=== PATIENT | female | born 1945 | race African-American/Black ===

== ENCOUNTER → 2016-11-28 | Outpatient (CLI) | payer OTHER ==
[~2016-11-28] MED LIST: AMARYL4 MG PO; AMITRIPTYLINE H10 M1 PO; AMITRIPTYLINE H25 M3 PO; ASPIRIN EC81 M1 PO; BACLOFEN 10MG T10 MG PO; COZAAR 50 MG TA50 MG PO; D-20002000 UNIT PO; FLEXERIL PO; GABAPENTIN 100100 MG PO; HYDROCHLOROTHIA25 M1 PO; IBUPROFEN 800800 M1 PO; LASIX 40 MG TAB40 M2 PO; LIDODERM 5%1 PATC1 TRANSDERM; LIPITOR20 MG PO; LISINOPRIL40 MG PO; METOPROLOL SUCC50 MG PO; NAPROSYN500 MG PO; NEXIUM40 MG PO; NITROGLYCERIN0.4 MG SUBLING; NORCO 5-325 TA1 EACH PO; OMEPRAZOLE20 MG PO; OXYCONTIN10 M1 PO; PERCOCET 10-321 EACH PO; PERCOCET PO; POTASSIUM20 PO; PREDNISONE 20 M20 MG PO; PROPYLTHIOURACIL PO; TOPROL XL25 MG PO
== END ==
LOC: CAT 06:54
DX: M47.26 Other spondylosis with radiculopathy, lumbar region (principal); M48.06 Spinal stenosis, lumbar region; M54.5 Low back pain

== ENCOUNTER → 2017-01-22 | Outpatient (CLI) | payer OTHER | LOC: HYPER 07:04 | DX: T81.89XD Other complications of procedures, not elsewhere classified, subsequent encounter (principal); E11.69 Type 2 diabetes mellitus with other specified complication; I10 Essential (primary) hypertension; I25.10 Atherosclerotic heart disease of native coronary artery without angina pectoris; J44.9 Chronic obstructive pulmonary disease, unspecified; Z95.0 Presence of cardiac pacemaker; Y83.8 Other surgical procedures as the cause of abnormal reaction of the patient, or of later complication, without mention of misadventure at the time of the procedure ==

== ENCOUNTER → 2017-02-10 | Outpatient (CLI) | payer OTHER | LOC: HYPER 07:03 | DX: T81.89XD Other complications of procedures, not elsewhere classified, subsequent encounter (principal); I10 Essential (primary) hypertension; I25.10 Atherosclerotic heart disease of native coronary artery without angina pectoris; J44.9 Chronic obstructive pulmonary disease, unspecified; Z95.0 Presence of cardiac pacemaker; Y83.8 Other surgical procedures as the cause of abnormal reaction of the patient, or of later complication, without mention of misadventure at the time of the procedure; E11.9 Type 2 diabetes mellitus without complications ==

== ENCOUNTER → 2017-03-10 | Outpatient (CLI) | payer OTHER | LOC: HYPER 07:12 | DX: T81.4XXD Infection following a procedure, subsequent encounter (principal); E11.69 Type 2 diabetes mellitus with other specified complication; I10 Essential (primary) hypertension; E43 Unspecified severe protein-calorie malnutrition; I25.10 Atherosclerotic heart disease of native coronary artery without angina pectoris; J44.9 Chronic obstructive pulmonary disease, unspecified; Z95.0 Presence of cardiac pacemaker; Y83.8 Other surgical procedures as the cause of abnormal reaction of the patient, or of later complication, without mention of misadventure at the time of the procedure ==

== ENCOUNTER 2017-03-26 13:16 | Emergency (ER) | payer OTHER ==
[~2017-03-26] VITALS: Ht 167.6 cm; Wt 71.7 kg
[2017-03-26] MEDS ORDERED: CLARITIN10 MG PO (14:04)
[2017-03-26] MEDS ORDERED: FLONASE 0.05%50 MCG NASAL (14:04)
== END 2017-03-26 14:14 | disposition home or self-care (01) ==
LOC: ER 13:16
DX: J30.9 Allergic rhinitis, unspecified (principal); I10 Essential (primary) hypertension; E11.9 Type 2 diabetes mellitus without complications; E78.00 Pure hypercholesterolemia, unspecified; G89.29 Other chronic pain; M41.86 Other forms of scoliosis, lumbar region; Z95.0 Presence of cardiac pacemaker

== ENCOUNTER 2017-12-01 13:11 | Emergency (ER) | payer OTHER ==
[~2017-12-01] VITALS: Ht 167.6 cm; Wt 69.8 kg
--- NOTE | ~2017-12-01 | EKG ---
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[facility] : 1945 Requested By: Mesha Peña Order Number: [id number] MD: Massimo Connell Measurements Intervals [place] Rate: 66 P: 16 WA: 174 QRS: -55 QRSD: 150 T: 117 QT: 449 QTc: 471 Interpretive Statements Atrial-sensed ventricular-paced rhythm No further analysis attempted due to paced rhythm Compared to ECG 05/03/2017 07:44:52 No significant changes Electronically Signed On 12-02-2017 15:45:36 FROG [employer]AKER by Massimo Cnonell [email or web address] <ELECTRONICALLY SIGNED> By: Massimo Connell MD, [facility] 12/02/17 1545 1320 1320 Massimo Connell MD, FACC /EPI
[~2017-12-01 13:11] MED LIST changes: +CLARITIN10 MG PO; +COREG6.25 MG PO; +FLONASE 0.05%50 MCG NASAL; +MULTIVITAMINS1 EAC7 PO; +REFRESH LIQUIGE15 ML OP; +VITAMINC500 PO; +ZANTAC 150MG T150 MG PO
[2017-12-01 14:09] LABS: ABSOLUTE NEUTROPHILS 4.4 thou/uL (1.4-8.2); BASOPHILS 1.2 % (0.0-2.0); EOSINOPHILS 3.7 % (0.0-3.0); HEMATOCRIT 37.3 % (37.0-47.0); HEMOGLOBIN 12.4 gm/dL (12.0-15.0); LYMPHOCYTES 23.6 % (24.0-44.0); MCHC 33.2 g/dL (28.0-37.0); MCV 87.6 fL (80.0-100.0); MONOCYTES 11.3 % (1.0-8.0); PLATELET COUNT 385 thou/uL (150-400); POLYS 60.2 % (36.0-66.0); RBC 4.25 mil/uL (4.20-5.00); RDW 15.3 % (10.5-14.5); WBC 7.4 thou/uL (4.0-11.0)
[2017-12-01 14:18] LABS: ANION GAP 6 mmol/L (7-16); BUN 17 mg/dL (7-18); CALCIUM 9.1 mg/dL (8.5-10.1); CHLORIDE 108 mmol/L (98-107); CO2 28 mmol/L (21-32); CREATININE 0.8 mg/dL (0.6-1.0); GLUCOSE 143 mg/dL (74-106); POTASSIUM 3.6 mmol/L (3.5-5.1); SODIUM 142 mmol/L (136-145)
[2017-12-01 14:26] LABS: ALBUMIN 3.4 g/dL (3.4-5.0); SGOT 13 U/L (15-37); SGPT 19 U/L (30-65); TOTAL BILIRUBIN 0.4 mg/dL (<0.1-1.0); TROPONIN-I < 0.04 ng/mL (<0.06)
[2017-12-01 16:04] VITALS: BP 161/73
== END 2017-12-01 16:05 | disposition home or self-care (01) ==
LOC: ER 13:11
PROVIDERS: Physician Assistant
DX: F41.9 Anxiety disorder, unspecified (principal); I10 Essential (primary) hypertension; E11.9 Type 2 diabetes mellitus without complications; E78.00 Pure hypercholesterolemia, unspecified; G89.29 Other chronic pain; M54.5 Low back pain; E07.9 Disorder of thyroid, unspecified

== ENCOUNTER 2018-03-04 13:49 | Emergency (ER) | payer OTHER ==
[~2018-03-04] VITALS: Ht 167.6 cm; Wt 73.9 kg
--- NOTE | ~2018-03-04 | EKG ---
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 03/05/18 0831 1204 1204 Massimo Connell MD, [facility] /EPI
[2018-03-04 14:25] LABS: ABSOLUTE NEUTROPHILS 5.2 thou/uL (1.4-8.2); BASOPHILS 0.9 % (0.0-2.0); EOSINOPHILS 1.8 % (0.0-3.0); HEMOGLOBIN 12.6 gm/dL (12.0-15.0); LYMPHOCYTES 19.1 % (24.0-44.0); MCH 29.1 pg (26.0-34.0); MCHC 33.1 g/dL (28.0-37.0); MCV 87.8 fL (80.0-100.0); MONOCYTES 10.7 % (1.0-8.0); PLATELET COUNT 244 thou/uL (150-400); POLYS 67.5 % (36.0-66.0); RBC 4.33 mil/uL (4.20-5.00); RDW 15.5 % (10.5-14.5); WBC 7.7 thou/uL (4.0-11.0)
[2018-03-04 14:33] LABS: ANION GAP 6 mmol/L (7-16); BUN 21 mg/dL (7-18); CHLORIDE 106 mmol/L (98-107); CO2 28 mmol/L (21-32); CREATININE 0.9 mg/dL (0.6-1.0); GLUCOSE 122 mg/dL (74-106); POTASSIUM 4.3 mmol/L (3.5-5.1); SODIUM 140 mmol/L (136-145)
[2018-03-04 14:42] LABS: TROPONIN-I < 0.04 ng/mL (<0.06)
[2018-03-04] MEDS ORDERED: PROTONIX40 M1 PO (15:45)
== END 2018-03-04 16:17 | disposition home or self-care (01) ==
LOC: ER 13:49
PROVIDERS: Emergency Medicine
DX: R07.9 Chest pain, unspecified (principal); R51 Headache; I10 Essential (primary) hypertension; E11.9 Type 2 diabetes mellitus without complications; E78.00 Pure hypercholesterolemia, unspecified; Z95.0 Presence of cardiac pacemaker

== ENCOUNTER 2020-04-19 19:35 | Emergency (ER) | payer OTHER ==
[~2020-04-19] VITALS: Ht 167.6 cm; Wt 75.3 kg
[~2020-04-19 19:35] MED LIST changes: +PROTONIX40 M1 PO
[2020-04-19 20:29] LABS: ABSOLUTE NEUTROPHILS 3.4 thou/uL (1.4-8.2); BASOPHILS 0.9 % (0.0-2.0); EOSINOPHILS 4.1 % (0.0-3.0); HEMATOCRIT 37.4 % (37.0-47.0); HEMOGLOBIN 12.3 gm/dL (12.0-15.0); LYMPHOCYTES 29.2 % (24.0-44.0); MCHC 32.9 g/dL (28.0-37.0); MCV 91.1 fL (80.0-100.0); PLATELET COUNT 313 thou/uL (150-400); POLYS 54.8 % (36.0-66.0); RBC 4.11 mil/uL (4.20-5.00); WBC 6.2 thou/uL (4.0-11.0)
[2020-04-19 20:39] LABS: ANION GAP 7 mmol/L (7-16); BUN 19 mg/dL (7-18); CALCIUM 9.5 mg/dL (8.5-10.1); CHLORIDE 107 mmol/L (98-107); CO2 29 mmol/L (21-32); CREATININE 1.1 mg/dL (0.6-1.0); GLUCOSE 127 mg/dL (74-106); POTASSIUM 4.4 mmol/L (3.5-5.1); SODIUM 143 mmol/L (136-145)
[2020-04-19 20:47] LABS: TROPONIN-I <0.06 ng/mL (<0.06)
[2020-04-19 21:56] VITALS: BP 138/75
--- NOTE | 2020-04-20 08:00 | EKG ---
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[place] [id number] : 1945 Requested By: Jak Thao Order Number: [id number] MD: Oswaldo Raman Measurements Intervals [place] Rate: 68 P: 28 [place]: 192 QRS: -54 QRSD: 149 T: 114 QT: 449 QTc: 478 Interpretive Statements Atrial-sensed ventricular-paced rhythm No further analysis attempted due to paced rhythm Baseline wander in lead(s) V1,V4 Compared to ECG 07/09/2018 16:24:44 No significant changes Electronically Signed On 04-20-2020 7:59:48 CDT by Oswaldo Raman [email or web address] <ELECTRONICALLY SIGNED> By: Oswaldo Raman MD 04/20/20 0759 [id number] 54 Oswaldo Raman MD /EPI
== END 2020-04-19 22:04 | disposition home or self-care (01) ==
LOC: ER 19:35
PROVIDERS: Emergency Medicine
DX: R07.89 Other chest pain (principal); I10 Essential (primary) hypertension; E11.9 Type 2 diabetes mellitus without complications; E78.00 Pure hypercholesterolemia, unspecified; G89.29 Other chronic pain; Z79.82 Long term (current) use of aspirin; Z79.899 Other long term (current) drug therapy; Z95.0 Presence of cardiac pacemaker; Z98.890 Other specified postprocedural states

== ENCOUNTER 2021-01-28 20:59 | Emergency (ER) | payer OTHER ==
[~2021-01-28] VITALS: Ht 167.6 cm; Wt 72.1 kg
[2021-01-28 21:39] LABS: URINE BLOOD NEGATIVE (Negative); URINE CLARITY SL CLOUDY; URINE COLOR YELLOW; URINE GLUCOSE-RANDOM* NEGATIVE (Negative); URINE KETONES 1+ (Negative); URINE LEUKOCYTES-REFLEX 1+ (Negative); URINE NITRITE-REFLEX NEGATIVE (Negative); URINE PROTEIN (DIPSTICK) NEGATIVE (Negative); URINE SPECIFIC GRAVITY 1.025 (1.005-1.035)
[2021-01-28 21:50] LABS: ICTOTEST (BILI CONFIRMATORY) Negative (Negative); URINE BILIRUBIN NEGATIVE (Negative)
[2021-01-28 21:51] LABS: HYALINE CASTS >10 Many /LPF (None Seen); MUCUS 0-3 Light strn/LPF (None Seen); SQUAMOUS 4-10 Moderate /LPF (0-3)
[2021-01-28 21:52] LABS: CRYSTALS None Seen /LPF (None Seen); URINE RBC None Seen /HPF (0-2); URINE WBC-REFLEX 6-15 Few /HPF (0-5)
[2021-01-28 22:10] LABS: ABSOLUTE NEUTROPHILS 3.1 thou/uL (1.4-8.2); BASOPHILS 1.5 % (0.0-2.0); EOSINOPHILS 2.9 % (0.0-3.0); HEMATOCRIT 37.1 % (37.0-47.0); HEMOGLOBIN 12.2 gm/dL (12.0-15.0); LYMPHOCYTES 29.8 % (24.0-44.0); MCH 29.2 pg (26.0-34.0); MCHC 32.9 g/dL (28.0-37.0); MCV 88.7 fL (80.0-100.0); MONOCYTES 12.9 % (1.0-8.0); PLATELET COUNT 317 thou/uL (150-400); POLYS 52.9 % (36.0-66.0); RBC 4.18 mil/uL (4.20-5.00); RDW 15.7 % (10.5-14.5); WBC 5.9 thou/uL (4.0-11.0)
[2021-01-28 22:21] LABS: CALCIUM 9.1 mg/dL (8.5-10.1); POTASSIUM 3.7 mmol/L (3.5-5.1)
[2021-01-28 22:28] LABS: ALBUMIN 3.5 g/dL (3.4-5.0); TOTAL BILIRUBIN 0.5 mg/dL (0.2-1.0)
[2021-01-28 23:45] VITALS: BP 137/77
== END 2021-01-28 23:45 | disposition home or self-care (01) ==
LOC: ER 20:59
PROVIDERS: Emergency Medicine; Nurse Practitioner Family
DX: K40.90 Unilateral inguinal hernia, without obstruction or gangrene, not specified as recurrent (principal); I10 Essential (primary) hypertension; E11.9 Type 2 diabetes mellitus without complications; Z95.0 Presence of cardiac pacemaker; Z79.82 Long term (current) use of aspirin; Z79.899 Other long term (current) drug therapy

== ENCOUNTER 2021-04-27 14:20 | Emergency (ER) | payer OTHER ==
[~2021-04-27] VITALS: Ht 167.6 cm; Wt 72.1 kg
[2021-04-27] MEDS ORDERED: MOBIC7.5 MG PO (15:56)
[2021-04-27 16:01] VITALS: BP 162/92
== END 2021-04-27 16:01 | disposition home or self-care (01) ==
LOC: ER 14:20
DX: S09.90XA Unspecified injury of head, initial encounter (principal); M25.561 Pain in right knee; M54.2 Cervicalgia; I10 Essential (primary) hypertension; E11.9 Type 2 diabetes mellitus without complications; E78.00 Pure hypercholesterolemia, unspecified; Z95.5 Presence of coronary angioplasty implant and graft; Z79.899 Other long term (current) drug therapy; Z79.82 Long term (current) use of aspirin; W18.00XA Striking against unspecified object with subsequent fall, initial encounter; Y93.89 Activity, other specified; Y92.89 Other specified places as the place of occurrence of the external cause; Y99.8 Other external cause status